=== PATIENT | female | born 1990 | race Caucasian/White ===

== ENCOUNTER 2025-05-05 09:38 | Emergency (ER) | payer MEDICAID ==
[~2025-05-05] VITALS: Ht 172.7 cm; Wt 65.5 kg
[2025-05-05 09:42] VITALS: BP 153/101; PULSE 99; RESP 15; TEMP 97.7; O2SAT 97
[2025-05-05] MEDS ORDERED: GABA-535 PO (10:08)
--- NOTE | 2025-05-05 10:08 | Physician Documentation ---
History of Present Illness ~ Chief Complaint: Anxiety Stated Complaint: SOB Time Seen by MD: 09:46 OK to notify your PCP?: Yes Source: patient Mode of Arrival: POV Exam Limitations: no limitations HPI 34-year-old female who is here with chief complaint anxiety. She states she has a history of anxiety but her anxiety recently worsened after her mother from a fentanyl overdose in her sister ended up dying from suicide all within two weeks of each other. Patient was living in [facility] but recently moved here to live with her cousin. Patient states she has also been drinking alcohol excessively 24 beers a day. She has not had any bear to drank in a few hours. She is not on any prescription medications. Denies any illicit drug use. Patient reports shortness related to her anxiety but denies chest pain, cough, fever, chills, edema, syncopal episodes. Medication Reconciliation Allergies: Coded Allergies: No Known Allergies (Unverified , 05/05/25) Past Medical History Past Medical History: Anxiety Alcohol Use: Heavy Drug Use: none Lives In: Home Review of Systems All Other Systems at this time: Reviewed and Negative Physical Exam Vital Signs: Temperature: 97.7, Source: Temporal, Heart Rate: 99, Respiratory Rate: 15, BP: 153/101, Pulse Oximetry: 97, Weight: 65.500 Physical Exam GENERAL: Alert, no acute distress. HEENT: NCAT, EOMI, PERRL, normal oropharynx, moist oral mucosa. NECK: Supple, trachea midline. CARDIAC: Regular rate and rhythm, no murmurs, rubs, or gallops. PV: Equal distal pulses. No lower extremity edema, cap refill less than 2 seconds. RESPIRATORY: Equal breath sounds, clear to auscultation bilaterally, no respiratory distress. MUSCULOSKELETAL: Normal range of motion, nontender, no swelling. Normal gait. NEUROLOGICAL: Awake, alert, and oriented x 3. SKIN: Warm/dry, no pallor, no rash. PSYCH: Alert and appropriate. Affect congruent with mood. Speech is clear. Good eye contact. Progress Results/Orders Results/Orders Orders - MALA MEJIA Lorazepam Tablet (Ativan Tablet) (05/05/25 10:05) Vital Signs 05/05/25 09:42 Temp 97.7 Pulse 99 Resp 15 B/P (MAP) 153/101 Pulse Ox 97 Medical Decision Making Differential Dx:Considerations: Include: Alcohol abuse, Anxiety, Bipolar dis order, Conversion disorder, Depression, Encephaloathy, Homicidal, Panic disorder, Personality disorder, Schizophrenia, Substance abuse, Suicidal, Other Departure Time of Disposition: 10:05 Disposition: 01 HOME / SELF CARE / HOMELESS Impression: Primary Impression: Anxiety Additional Impression: Alcoholism Condition: Stable Discharge Instructions: Panic Attack Additional Instructions: I have medically cleared you for rehab or detox this clearance is good for 24 hours if you choose to go. I sent a medication for gabapentin to help with alcohol withdrawals. Return to the ER if you have any urgent or emergent concerns. Referrals: NO PRIMARY CARE PROVIDER (PCP) Prescriptions Gabapentin (Gabapentin) 400 Mg Capsule 1 CAP PO Q8H for 5 Days, #15 CAP 0 Refills Prov: MALA MEJIA 05/05/25 Education Educated: Patient Educated regarding: diagnosis, treatment, need for follow up Signature Scribe Signature: x Attestation: MALA Abraham May 05, 2025 10:08
== END 2025-05-05 10:10 | disposition home or self-care (01) ==
LOC: ER 09:39
DX: F41.9 Anxiety disorder, unspecified (principal); F10.20 Alcohol dependence, uncomplicated; Y90.9 Presence of alcohol in blood, level not specified
CPT/HCPCS: 99283

== ENCOUNTER 2025-05-12 21:47 | Emergency (ER) | payer MEDICAID ==
[~2025-05-12] VITALS: Ht 172.7 cm; Wt 75.8 kg
[~2025-05-12 21:47] MED LIST: GABA-535 PO
[2025-05-12 21:49] VITALS: TEMP 97.8
--- NOTE | 2025-05-12 21:55 | ELECTROCARDIOGRAPH REPORT ---
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
[2025-05-12 22:19] LABS: MEAN PLATELET VOLUME 8.5 FL (7.4-10.4); RED CELL DISTRIBUTION WIDTH 12.7 % (11.5-14.5)
[2025-05-12 22:32] LABS: CREATININE 0.75 MG/DL (0.40-0.90); PRO BRAIN NATRIURETIC PEPTIDE < 30 PG/ML (0-125); TOTAL CARBON DIOXIDE 25.0 MMOL/L (24-32); eCRCL 106 ML/MIN; eGFR 88 ML/MIN
--- NOTE | 2025-05-12 23:22 | Physician Documentation ---
History of Present Illness ~ Chief Complaint: Dizziness Stated Complaint: DIZZY Time Seen by MD: 22:31 Source: patient, family Mode of Arrival: POV Exam Limitations: no limitations HPI Chief Complaint: Lightheadedness/dizziness Caveat: None Independent Historians: Friend History of Present Illness: Patient is a 34-year-old woman who comes in complaining of feeling dizzy that she describes as lightheadedness like she is going to pass out. 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 This was at approximately 8:30 p.m.. Patient has known anxiety but is not on any medications. Patient also complains of some tingling in both hands. Review of systems: All systems were reviewed and are negative except for what is indicated in the history of present illness. Past medical history: Anxiety Past Surgical History: Noncontributory Social History: No tobacco use, denies alcohol use, denies any drug use Medications: Reviewed as documented Nursing Notes Allergies: Reviewed as documented in Nursing Notes Medication Reconciliation Allergies: Coded Allergies: No Known Allergies (Unverified , 05/12/25) Scheduled Gabapentin (Gabapentin), 1 CAP PO Q8H Hydroxyzine Hcl* (Atarax*), 1 TAB PO Q8H Past Medical History Past Medical History: Anxiety Smoking Status: Former smoker Alcohol Use: Heavy Drug Use: none Lives In: Home Review of Systems All Other Systems at this time: Reviewed and Negative ROS Patient denies any other acute symptoms other than above. All other systems are negative Physical Exam Vital Signs: RN Vital Signs have been reviewed: Yes, Temperature: 97.8, Source: Temporal, Heart Rate: 86, Respiratory Rate: 12, BP: 175/111, Pulse Oximetry: 98, Weight: 75.800 Oxygen Flow Rate: 0 Pulse Oximetry Reflects: adequate oxygenation Physical Exam General Appearance: Mild distress HEENT: Normal OP, moist oral mucosa, PERRL, EOMI Neck: supple, normal ROM, trachea midline Pulmonary: No respiratory distress, CTA, BS equal Cardiac: RRR, no murmur, rub or gallop, GI: nondistended, soft, nontender, normal bowel sounds, no guarding, no rebound Extremities: normal ROM, no swelling, non-tender Skin: intact, dry, warm, no rashes Neuro: AAOx3, speech is clear, no focal motor weakness, shaking of her hands and feet in a nervous fashion Psych: Anxious affect, poor eye contact, no apparent hallucination, normal speech Progress Results/Orders Results/Orders Orders - ANTOINE WU MD Chest,Single View (05/12/25 21:48) Monitor (05/12/25 21:48) Saline Lock (05/12/25 21:48) Oxygen (05/12/25 21:48) Hs Troponin I W Calculations (05/12/25 23:48) Hs Troponin I W Calculations (05/13/25 00:48) Completed Orders - ANTOINE WU MD Chest,Single View (05/12/25 21:48) Cbc/Diff (05/12/25 21:48) BMP (05/12/25 21:48) PBNP (05/12/25 21:48) Electrocardiogram (05/12/25 21:48) Hs Troponin I W Calculations (05/12/25 21:48) Lorazepam Tablet (Ativan Tablet) (05/12/25 23:20) Medications Received in ER Medications (Trade) Dose Ordered Sig/Oumou Route PRN Reason Start Time Stop Time Status Last Admin Dose Admin (Ativan tablet) 1.5 mg ONCE ONCE PO 05/12/25 23:20 05/12/25 23:21 DC 05/12/25 23:27 1.5 MG Vital Signs 05/12/25 05/12/25 05/12/25 05/12/25 21:49 22:18 22:21 22:45 Temp 97.8 Pulse 99 86 81 Resp 18 12 B/P (MAP) 191/123 175/111 (132) 157/103 (121) Pulse Ox 98 98 97 O2 Flow Rate 0 0 05/12/25 23:15 Pulse 78 B/P (MAP) 147/99 (115) Pulse Ox 96 Laboratory Tests Test 05/12/25 22:02 05/12/25 23:44 White Blood Count 9.4 Red Blood Count 4.64 Hemoglobin 14.5 Hematocrit 43.0 Mean Corpuscular Volume 92.8 Mean Corpuscular Hemoglobin 31.2 H Mean Corpuscular Hemoglobin Concent 33.6 Red Cell Distribution Width 12.7 Platelet Count 293 Mean Platelet Volume 8.5 Neutrophils (%) (Auto) 55.6 Lymphocytes (%) (Auto) 32.9 Monocytes (%) (Auto) 8.7 Eosinophils (%) (Auto) 1.7 Basophils (%) (Auto) 1.1 H Neutrophils # (Auto) 5.2 Lymphocytes # (Auto) 3.1 Monocytes # (Auto) 0.8 Eosinophils # (Auto) 0.2 Basophils # (Auto) 0.1 CBC Comment Sodium Level 136 Potassium Level 3.9 Chloride Level 101 Carbon Dioxide Level 25.0 Anion Gap 10 Blood Urea Nitrogen 13 Creatinine 0.75 Estimated GFR/1.73 m2 88 BUN/Creatinine Ratio 17.3 Glucose Level 92 Calcium Level 9.2 Troponin I High Sensitivity 4 Pro-B-Type Natriuretic Peptide < 30 Albumin 4.1 Chemistry Comments Medical Decision Making Findings Differential diagnosis includes but is not limited to: Anxiety, hyperventilation, hyperventilation syndrome, substance abuse EKG independent interpretation: Performed at 9:53 p.m.. Normal sinus rhythm, heart rate 97, normal axis, normal ST segments, wandering baseline Chest x-ray, single view, indication: Dizziness Independent interpretation: Clear, normal mediastinum, normal cardiac silhouette. Normal chest x-ray. Laboratory data independent interpretation: CBC: Normal CMP: Normal Troponin: Less than 4 Pro BNP: Less than 30 Emergency department course/medical decision-making: Departure Time of Disposition: 23:20 Disposition: 01 HOME / SELF CARE / HOMELESS Impression: Primary Impression: Anxiety Additional Impression: Dizziness Condition: Improved Discharge Instructions: Dizziness, [id number], Generalized Anxiety Disorder, Adult Additional Instructions: FOLLOW UP WITH A PRIMARY CARE DOCTOR NEEDED Prescriptions Hydroxyzine Hcl* (Atarax*) 25 Mg Tablet 1 TAB PO Q8H for anxiety, #30 TAB Prov: ANTOINE WU MD 05/13/25 Education Educated: Patient Educated regarding: diagnosis, treatment, need for follow up Signature Scribe Signature: No scribe Attestation: No scribe ANTOINE WU MD May 12, 2025 23:22
[2025-05-12 23:51] VITALS: BP 146/109; PULSE 85; RESP 14; O2SAT 95
[2025-05-13] MEDS ORDERED: HYDR-3686 PO
--- NOTE | 2025-05-13 00:56 | RADIOLOGY REPORT ---
Clinical History CP Comparison None Technique: single view chest Without Contrast MATT REID, [id number] FINDINGS: Trachea is midline, heart size normal, cardiomediastinal silhouette unremarkable. There is no pneumonia or pulmonary vascular congestion, no pneumothorax, no evidence of pleural or pe ricardial effusion. Osseous structures are unremarkable on this single image. IMPRESSION: 1. No evidence of acute cardiopulmonary disease. This report was electronically signed by Brien Garcia MD on 05/13/2025 12:52:19 AM.
== END 2025-05-13 00:03 | disposition home or self-care (01) ==
LOC: ER 21:48
DX: R42 Dizziness and giddiness (principal); F41.9 Anxiety disorder, unspecified; F15.90 Other stimulant use, unspecified, uncomplicated; F10.90 Alcohol use, unspecified, uncomplicated; Z79.899 Other long term (current) drug therapy; Y90.9 Presence of alcohol in blood, level not specified
CPT/HCPCS: 36415; 71045; 80048; 83880; 84484; 85025; 93005; 99285

== ENCOUNTER 2025-05-19 21:46 | Emergency (ER) | payer MEDICAID ==
[~2025-05-19] VITALS: Ht 172.7 cm; Wt 78.0 kg
[~2025-05-19 21:46] MED LIST changes: +HYDR-3686 PO
[2025-05-19 21:56] VITALS: BP 162/103; PULSE 106; RESP 26; TEMP 97.7; O2SAT 96
--- NOTE | 2025-05-19 21:59 | ELECTROCARDIOGRAPH REPORT ---
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 Travis Delong Measurements Intervals [place] Rate: 95 P: 58 MA: 138 QRS: 72 QRSD: 87 T: 25 QT: 348 QTc: 438 Interpretive Statements Sinus rhythm Probable left atrial enlargement Baseline wander in lead(s) II,V1 Electronically Signed On 05-19-2025 23:49:[address] Travis Delong Please click the below link to view image of tracing.
== END 2025-05-20 00:32 | disposition left against medical advice (07) ==
LOC: ER 21:47
DX: R42 Dizziness and giddiness (principal); Z53.21 Procedure and treatment not carried out due to patient leaving prior to being seen by health care provider
CPT/HCPCS: 93005

== ENCOUNTER 2025-06-08 22:38 | Emergency (ER) | payer MEDICAID ==
[~2025-06-08] VITALS: Ht 170.2 cm; Wt 66.9 kg
[2025-06-08 22:41] VITALS: BP 162/82; PULSE 97; RESP 17; O2SAT 97
--- NOTE | 2025-06-08 23:30 | Physician Documentation ---
History of Present Illness ~ Chief Complaint: Anxiety Stated Complaint: CHEST PAIN Time Seen by MD: 23:23 HPI Patient presents to the emergency room for evaluation of anxiety. She endorses some dizziness and has been seen here several times in the past for similar symptoms. She endorses an appointment follow up with her primary care and psychiatrist. No SI/HI. She was prescribed Atarax however she states it was not working. Medication Reconciliation Allergies: Coded Allergies: No Known Allergies (Unverified , 05/19/25) Scheduled Gabapentin (Gabapentin), 1 CAP PO Q8H Hydroxyzine Hcl* (Atarax*), 1 TAB PO Q8H Past Medical History Past Medical History: Anxiety Alcohol Use: Heavy Drug Use: none Lives In: Home Review of Systems ROS All review of systems negative except as per HPI Physical Exam Vital Signs: Temperature: 97.6, Source: Temporal, Heart Rate: 97, Respiratory Rate: 17, BP: 162/82, Pulse Oximetry: 97, Weight: 66.900 Physical Exam General: Patient is awake, alert, oriented x4 in no acute distress Head: Normocephalic and atraumatic. Eyes: Conjunctival normal. EOMI. PERRL. ENT: Mucous membranes moist. Neck: Supple, trachea is midline. Chest: Clear to auscultation bilaterally without rales, rhonchi, or wheezes. There is no accessory muscle use or retractions. Cardiac: RRR without murmurs, gallops, or rubs. Psych: Anxious, cooperative, good eye contact Progress Results/Orders Results/Orders Vital Signs 06/08/25 22:41 Temp 97.6 Pulse 97 Resp 17 B/P (MAP) 162/82 Pulse Ox 97 Medical Decision Making Findings Patient presents to the emergency room as per HPI. Differentials include but are not limited to anxiety, panic attack, medication side effect, thyroid disorder. Given patient's history and he had not feel emergent labs or imaging is necessary. We will treat her acute anxiety with ER precautions discussed Departure Disposition: HOME / SELF CARE / HOMELESS Impression: Primary Impression: Anxiety Condition: Stable Discharge Instructions: Managing Anxiety, Adult Referrals: NO PRIMARY CARE PROVIDER (PCP) Signature Scribe Signature: No scribe Attestation: The note accurately reflects work and decisions made by me.Harry Waldron MD 06/08/25 23:30 HARRY WALDRON MD Jun 08, 2025 23:30
[2025-06-08] MEDS ORDERED: GABA300C PO (23:37)
[2025-06-08 23:51] VITALS: TEMP 97.6
== END 2025-06-08 23:52 | disposition home or self-care (01) ==
LOC: ER 22:38
DX: F41.9 Anxiety disorder, unspecified (principal); Z79.899 Other long term (current) drug therapy
CPT/HCPCS: 99283